=== PATIENT | male | born 1990 | race Caucasian/White ===

== ENCOUNTER 2018-07-13 20:50 | Emergency (ER) | payer OTHER ==
--- NOTE | 2018-07-13 22:22 | C.PDOC ---
History Of Present Illness 27 year old male presents with left sided occipital headache for the past 1 week. 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 He has tried heat and massage with no improvement. Time Seen by Provider: 07/13/18 21:36 Chief Complaint (Nursing): Headache History Per: Patient History/Exam Limitations: no limitations Onset/Duration Of Symptoms: Days (1) Current Symptoms Are (Timing): Still Present Preceeding Symptoms: None Associated Symptoms: denies: Blurred Vision, Nausea, Vomiting Recent travel outside of the [place]: No Past Medical History Reviewed: Historical Data, Nursing Documentation, Vital Signs Vital Signs: Last Vital Signs Temp 97.5 F L 07/13/18 20:52 Pulse 97 H 07/13/18 20:52 Resp 20 07/13/18 20:52 BP 156/96 H 07/13/18 20:52 Pulse Ox 100 07/13/18 20:52 Family History: States: Unknown Family Hx - Social History Hx Alcohol Use: Yes Hx Substance Use: No - Immunization History Hx Tetanus Toxoid Vaccination: No Hx Influenza Vaccination: No Hx Pneumococcal Vaccination: No Review Of Systems Constitutional: Negative for: Fever, Chills Cardiovascular: Negative for: Chest Pain, Palpitations Respiratory: Negative for: Cough, Shortness of Breath Gastrointestinal: Negative for: Nausea, Vomiting Neurological: Positive for: Headache. Negative for: Weakness, Numbness Physical Exam - Physical Exam Appears: Non-toxic Skin: Normal Color, Warm Head: Atraumatic, Normacephalic, Other Eye(s): bilateral: Normal Inspection, PERRL, EOMI Nose: Other (Mild to moderate nasal passage erythema) Oral Mucosa: Moist Neck: Other (Tenderness with occipital insertion of trapezium left greater than right.) Chest: Symmetrical, No Tenderness Cardiovascular: Rhythm Regular Respiratory: Normal Breath Sounds, No Rales, No Rhonchi, No Wheezing Gastrointestinal/Abdominal: Soft, No Tenderness Neurological/Psych: Oriented x3, Normal Speech, Other (No focal deficit) ED Course And Treatment O2 Sat by Pulse Oximetry: 100 (Room air) Pulse Ox Interpretation: Normal Medical Decision Making Medical Decision Making: occipital headache/tension headache no sig sinusitus improved with Motrin/ice ok for d/c. Disposition Doctor Will See Patient In The: Office Counseled Patient/Family Regarding: Studies Performed, Diagnosis - Disposition Referrals: [facility] [Outside] [facility] [Outside] [facility] [Outside] Disposition: HOME/ ROUTINE Disposition Time: 22:23 Condition: GOOD Additional Instructions: continue motrin/Advil 400-600 mg every 6 hours as needed for occipital headache pain ice packs to back of scalp better positioning for working at desk/computer outpatient follow-up as needed. Instructions: Tension Headache Forms: [employer] (Swedish) - Clinical Impression Clinical Impression: Headache - Scribe Statement The provider has reviewed the documentation as recorded by the Scribe Kevin Carrizales All medical record entries made by the Scribe were at my direction and personally dictated by me. I have reviewed the chart and agree that the record accurately reflects my personal performance of the history, physical exam, medical decision making, and the department course for this patient. I have also personally directed, reviewed, and agree with the discharge instructions and disposition.
[2018-07-13 22:40] VITALS: BP 127/78; PULSE 74; RESP 17; TEMP 98
[2018-07-14 00:39] VITALS: O2SAT 100
== END 2018-07-13 22:39 | disposition home or self-care (01) ==
LOC: C.ER 20:50
DX: R51 Headache (principal)